=== PATIENT | female | born 1970 | race Caucasian/White ===

== ENCOUNTER 2018-05-29 01:35 | Inpatient (IN) | payer MEDICAID, OTHER ==
[~2018-05-29] VITALS: Ht 160 cm; Wt 93.0 kg
[2018-05-29] MEDS ORDERED: NITROGLYCERIN 0.4MG TABLET SL SL PRN ×2 (02:00→09:45)
[2018-05-29 02:08] LABS: BASOPHILS % 1.1 % (0.0-2.0); HEMATOCRIT. 40.2 % (36.0-48.0); HEMOGLOBIN. 13.5 g/dL (12.0-16.0); LYMPHOCYTES % 36.2 % (20.0-50.0); MEAN CORPUSCULAR HEMOGLOBIN 28.1 pg (28.0-32.0); MEAN CORPUSCULAR VOLUME 83.5 fL (81.0-99.0); MONOCYTES % 7.4 % (2.0-8.0); NEUTROPHILS % 53.3 % (40.0-76.0); PLATELET 309 x1000/uL (130-400); RED BLOOD CELL COUNT 4.82 mill/uL (4.2-5.4); RED CELL DISTRIBUTION WIDTH 13.1 % (11.6-14.6)
[2018-05-29 02:15] LABS: CHLORIDE 106 mEq/L (98-107)
[2018-05-29 02:17] LABS: PARTIAL THROMBOPLASTIN TIME 23.9 sec (23.4-31.0); PROTHROMBIN TIME 10.1 sec (9.1-11.1)
[2018-05-29] MEDS ORDERED: ASPIRIN 81MG TABLET PO SCH (02:18)
[2018-05-29] MEDS ORDERED: ENOXAPARIN 80MG/0.8ML SYR SUBCUT NR (06:22)
[2018-05-29 08:50] VITALS: BP 121/63
[2018-05-29 09:30] VITALS: BP 121/63
[2018-05-29] MEDS ORDERED: MAGNESIUM/ALUMINUM HYDROXIDE/SIMETHICONE 30ML UDC PO PRN (09:45)
[2018-05-29] MEDS ORDERED: IPRATROPIUM/ALBUTEROL 0.5-3(2.5)MG/3ML NEB INH PRN (09:45)
[2018-05-29] MEDS ORDERED: ZOLPIDEM TARTRATE 5MG TABLET PO PRN (09:45)
[2018-05-29] MEDS ORDERED: ONDANSETRON HCL 4MG/2ML INJ IV PRN (09:45)
[2018-05-29] MEDS ORDERED: CLONIDINE 0.1MG TABLET PO PRN (09:45)
[2018-05-29] MEDS ORDERED: NA PHOS,M-B/NA PHOS,DI-BA ENEMA 118ML PR PRN (09:45)
[2018-05-29] MEDS ORDERED: LORAZEPAM 0.5MG TABLET PO PRN (09:45)
[2018-05-29] MEDS ORDERED: KETOROLAC 30MG/ML VIAL IV PRN (09:45)
[2018-05-29] MEDS ORDERED: DOCUSATE SODIUM 100MG CAPSULE PO PRN (09:45)
[2018-05-29] MEDS ORDERED: ACETAMINOPHEN 325MG TABLET PO PRN (09:45)
[2018-05-29] MEDS ORDERED: GUAIFENESIN 200MG/10ML SUGAR FREE UDC PO PRN (09:45)
[2018-05-29] MEDS ORDERED: ESCI10TA54 MT (10:25)
[2018-05-29] MEDS ORDERED: HYDR-3992 PO (10:27)
[2018-05-29] MEDS: FAMOTIDINE 20MG TABLET PO SCH ×2 (11:23→23:49)
[2018-05-29 12:00] VITALS: BP 105/58
[2018-05-29 16:00] VITALS: BP 125/70
[2018-05-29 16:45] LABS: CREATINE KINASE 608 IU/L (26-192)
[2018-05-29 16:46] LABS: CREATINE KINASE MB FRACTION 6.1 ng/mL (0.5-3.6)
[2018-05-29] MEDS ORDERED: POTASSIUM CHLORIDE 20MEQ/PACKET PO SCH (18:30)
[2018-05-29 20:33] VITALS: BP 166/67
[2018-05-29 20:42] LABS: *AMPHETAMINES SCREEN URINE NEGATIVE (NEGATIVE)
[2018-05-29 20:43] LABS: *BARBITURATES SCREEN URINE NEGATIVE (NEGATIVE); *BENZODIAZEPINES SCREEN URINE NEGATIVE (NEGATIVE); *COCAINE SCREEN URINE NEGATIVE (NEGATIVE)
[2018-05-29 20:44] LABS: CANNABINOID URINE SCREEN NEGATIVE (NEGATIVE); METHADONE URINE SCREEN NEGATIVE (NEGATIVE); OPIATES URINE SCREEN NEGATIVE (NEGATIVE); PHENCYCLIDINE URINE SCREEN NEGATIVE (NEGATIVE)
[2018-05-30 00:02] LABS: CREATINE KINASE 529 IU/L (26-192); CREATINE KINASE MB FRACTION 4.5 ng/mL (0.5-3.6)
[2018-05-30 00:49] VITALS: BP 123/76
[2018-05-30 04:53] VITALS: BP 119/71
[2018-05-30 08:00] VITALS: BP 136/92
[2018-05-30] MEDS: FAMOTIDINE 20MG TABLET PO SCH (08:51)
[2018-05-30] MEDS ORDERED: ASPIRIN 325MG EC TABLET PO SCH (09:00)
[2018-05-30] MEDS ORDERED: MEDICATION NOT ON FORMULARY EA (Escitalopram Oxalate 1 TAB) MT SCH (09:00)
[2018-05-30] MEDS ORDERED: ENOXAPARIN 40MG/0.4ML SYR SUBCUT SCH (09:00)
[2018-05-30] MEDS ORDERED: CITALOPRAM HYDROBROMIDE 20MG TABLET PO SCH (09:00)
[2018-05-30 12:00] VITALS: BP 119/70
[2018-05-30 14:23] VITALS: BP 119/70
== END 2018-05-30 15:20 | disposition home or self-care (01) | DRG 203 ==
LOC: ER 01:35 → 5WST 06:23 → ENRESERV 07:52
PROVIDERS: ADMIT Internal Medicine; ATTEND Internal Medicine
DX: M94.0 Chondrocostal junction syndrome [Tietze] (principal); K76.0 Fatty (change of) liver, not elsewhere classified; E83.51 Hypocalcemia; E66.9 Obesity, unspecified; F41.9 Anxiety disorder, unspecified; I10 Essential (primary) hypertension; E87.6 Hypokalemia; R74.0 Nonspecific elevation of levels of transaminase and lactic acid dehydrogenase [LDH]; Z68.36 Body mass index [BMI] 36.0-36.9, adult
CPT/HCPCS: 36415; 71045; 80061; 80305; 82550; 82553; 83036; 83880; 84484; 93005; 93970; 96372; 99285; J1650

== ENCOUNTER 2019-12-04 10:48 | Emergency (ER) | payer MEDICAID ==
[~2019-12-04] VITALS: Ht 160 cm; Wt 95.0 kg
[~2019-12-04 10:48] MED LIST: ESCI10TA61 MT; HYDR-3992 PO
[2019-12-04] MEDS ORDERED: SODIUM CHLORIDE 0.9% 1,000 ML IV ONE (12:02)
[2019-12-04] MEDS ORDERED: MECLIZINE 25MG TABLET PO ONE (12:45)
[2019-12-04 13:00] LABS: BASOPHILS % 0.3 % (0.0-2.0); EOSINOPHILS % 0.4 % (0.0-5.0); HEMATOCRIT. 40.9 % (36.0-48.0); HEMOGLOBIN. 13.5 g/dL (12.0-16.0); LYMPHOCYTES % 13.7 % (20.0-50.0); MEAN CORPUSCULAR HEMOGLOBIN 27.8 pg (28.0-32.0); MEAN CORPUSCULAR VOLUME 84.5 fL (81.0-99.0); MEAN PLATELET VOLUME 7.3 fl (7.4-10.4); MONOCYTES % 4.2 % (2.0-8.0); NEUTROPHILS % 81.4 % (40.0-76.0); PLATELET 289 x1000/uL (130-400); RED BLOOD CELL COUNT 4.84 mill/uL (4.2-5.4); RED CELL DISTRIBUTION WIDTH 13.1 % (11.6-14.6)
[2019-12-04 13:01] LABS: CHLORIDE 107 mEq/L (98-107)
[2019-12-04] MEDS ORDERED: ONDANSETRON HCL 4MG/2ML INJ IV ONE (13:15)
[2019-12-04 14:21] VITALS: BP 131/72
[2019-12-04 14:22] LABS: CLARITY URINE CLOUDY (CLEAR); COLOR URINE YELLOW (YELLOW); KETONES URINE NEGATIVE (NEGATIVE); LEUKOCYTE ESTERASE URINE 2+ (NEGATIVE); NITRITE URINE NEGATIVE (NEGATIVE); OCCULT BLOOD URINE TRACE (NEGATIVE); PH URINE 8.5 (4.5-8.0); PROTEIN URINE NEGATIVE (NEGATIVE); SPECIFIC GRAVITY URINE 1.016 (1.005-1.030); UROBILINOGEN URINE 0.2 E.U./dL (0.2-1.0)
== END 2019-12-04 14:30 | disposition home or self-care (01) ==
LOC: ER 11:02
DX: R42 Dizziness and giddiness (principal); R74.0 Nonspecific elevation of levels of transaminase and lactic acid dehydrogenase [LDH]; R03.0 Elevated blood-pressure reading, without diagnosis of hypertension
CPT/HCPCS: 36415; 70450; 71045; 80053; 81003; 82962; 84484; 85025; 96361; 96374; 99285; J2405; J7030; J8597